=== PATIENT | female | born 1945 | race Two or more races ===

== ENCOUNTER 2025-04-23 12:28 | Outpatient (CLI) | payer MEDICARE, BC ==
--- NOTE | 2025-04-23 15:05 | RADIOLOGY REPORT ---
Indication: CERVICALGIA Technique: CT axial images of the cervical spine are obtained without contrast. Coronal and sagittal reformats were obtained. Radiation Dose Information: CTDI volume is 17.4 mGy. Dose-length product is 400 mGy*cm Comparison: None FINDINGS: The cervical vertebral body heights are maintained. Reversal of normal cervical spine curvature. 4 m m anterolisthesis of C4 upon C5.3 mm anterolisthesis C5 on C6.. There is cervical levocurvature. Ther e is severe multilevel disc space narrowing. 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 No preverte bral edema. Facet articulations demonstrate moderate to severe facet hypertrophic changes . The atlan tooccipital, atlantoaxial articulations are intact. Carotid atherosclerotic disease. IMPRESSION: 1. Severe cervical degenerative disc disease. 2. 4 mm anterolisthesis of C4 upon C5.3 mm anterolisthesis of C5 on C6. 3. Moderate to severe facet hypertrophic changes.
== END 2025-04-23 23:59 | disposition home or self-care (01) ==
LOC: RAD 12:28
PROVIDERS: ATTEND Nurse Practitioner Adult Health
DX: M50.322 Other cervical disc degeneration at C5-C6 level (principal); M43.16 Spondylolisthesis, lumbar region; M43.12 Spondylolisthesis, cervical region; M47.816 Spondylosis without myelopathy or radiculopathy, lumbar region; M54.81 Occipital neuralgia; M47.22 Other spondylosis with radiculopathy, cervical region; M48.02 Spinal stenosis, cervical region
CPT/HCPCS: 72125